=== PATIENT | male | born 1935 | race Two or more races ===

== ENCOUNTER 2019-10-30 13:02 | Outpatient (CLI) | payer OTHER | END 2019-10-30 13:19 | disposition home or self-care (01) | LOC: NUCLEAR 13:02 | DX: C73 Malignant neoplasm of thyroid gland (principal) | CPT/HCPCS: 79005; A9517 ==

== ENCOUNTER 2019-11-03 07:08 | Outpatient (CLI) | payer OTHER | END 2019-11-03 07:16 | disposition home or self-care (01) | LOC: NUCLEAR 07:08 | DX: C73 Malignant neoplasm of thyroid gland (principal); E89.0 Postprocedural hypothyroidism ==

== ENCOUNTER 2025-07-02 14:47 | Outpatient (CLI) | payer OTHER | END 2025-07-02 14:50 | disposition home or self-care (01) | LOC: SONOGRAMA 14:47 | PROVIDERS: ATTEND Pathology Anatomic Pathology & Clinical Pathology | DX: D34 Benign neoplasm of thyroid gland (principal); E07.89 Other specified disorders of thyroid; C73 Malignant neoplasm of thyroid gland ==